=== PATIENT | male | born 1950 | race Caucasian/White ===

== ENCOUNTER → 2023-12-26 12:58 | Outpatient (REF) | payer MEDICARE, SELFPAY | LOC: MRI 3T 12:58 | PROVIDERS: ATTENDING PHYSICIAN Specialist; FAMILY PHYSICIAN Internal Medicine Cardiovascular Disease | DX: R97.20 Elevated prostate specific antigen [PSA] (principal) | CPT/HCPCS: 72197; A9575 ==

== ENCOUNTER 2024-07-16 08:04 | Outpatient (RCR) | payer MEDICARE, SELFPAY | END 2024-07-16 23:59 | disposition home or self-care (01) | LOC: RPT 08:04 | PROVIDERS: ATTENDING PHYSICIAN Specialist; FAMILY PHYSICIAN Family Medicine | DX: C61 Malignant neoplasm of prostate (principal); Z73.6 Limitation of activities due to disability; R32 Unspecified urinary incontinence | CPT/HCPCS: 97162; 97530 ==

== ENCOUNTER 2024-07-28 06:09 | Inpatient (IN) | payer MEDICARE, SELFPAY ==
[2024-07-16 11:43] LABS: INR 1.05; PT 14.2 Sec (11.4-14.6)
[2024-07-16 11:44] LABS: APTT 28.6 Sec (23.4-35.0)
[2024-07-16 11:47] LABS: Hematocrit 41.6 % (39.0-52.0); Hemoglobin 14.7 g/dL (13.0-18.0); Mean Corp Hgb Conc. 35.3 g/dL (33.0-37.0); Mean Corpuscular Volume 93.5 fL (80.0-94.0); Mean Platelet Volume 9.7 fL (7.4-10.4); Platelet Count 195 10^3/uL (130-400); Red Blood Cell Count 4.45 10^6/uL (4.70-6.10); White Blood Cell Count 6.6 10^3/uL (4.8-10.8)
[2024-07-16 12:16] LABS: Blood Urea Nitrogen 24 mg/dl (9-20); Calcium 8.8 mg/dl (8.4-10.2); Carbon Dioxide 25 mmol/L (22-30); Chloride 103 mmol/L (98-107); Glucose 89 mg/dl (70-99); Potassium 4.7 mmol/L (3.5-5.1); Sodium 139 mmol/L (135-145); eGFR 48.85
[2024-07-16 14:05] VITALS: BMI 28.4
--- NOTE | 2024-07-21 17:36 | PTCARENOTE ---
Abnormal eGFR 48.85 result reported to Kacey Pollock (urology office), no further requests at this time.
[2024-07-28] VITALS (17 sets, daily range): BP systolic 107–148; BP diastolic 48–87; BMI 28.4
[2024-07-28] MEDS: NEBCIN 480 MG/100 ML ENEMA 1 BOTTLE RECTAL (07:00)
[2024-07-28] MEDS: NORMOSOL-R/PLASMALYTE-A 1000 IV (07:17)
--- NOTE | 2024-07-28 09:28 | W.IMMPOSTOP ---
Surgical Immed Post Op Note
-
Primary Surgeon: Jerilyn
Assisting Surgeon: Frederic
Pre-op Diagnosis: Prostate cancer
Post-op Diagnosis: Same
Procedure Performed: Radical perineal prostatectomy, bladder neck reconstruction
Anesthesia Type: GET
Specimen / Cultures: Prostate with adnexa, bladder neck and urethral margins
Estimated Blood Loss: 150 ml
Complications: None
[2024-07-28] MEDS: DILAUDID 0.25 MG IV ×2 (10:04→11:51)
[2024-07-28 11:07] LABS: Hematocrit 38.4 % (39.0-52.0); Hemoglobin 13.7 g/dL (13.0-18.0)
[2024-07-28 12:03] LABS: Blood Urea Nitrogen 25 mg/dl (9-20); Calcium 8.6 mg/dl (8.4-10.2); Carbon Dioxide 19 mmol/L (22-30); Chloride 110 mmol/L (98-107); Estimated Creatinine Clearance 58 ml/min; Glucose 143 mg/dl (70-99); Potassium 4.9 mmol/L (3.5-5.1); Sodium 138 mmol/L (135-145); eGFR > 60.00
[2024-07-28] MEDS: LR 1000 IV ×3 (13:00→23:17)
[2024-07-28] MEDS: TORADOL 15 MG IV ×2 (15:01→19:24)
[2024-07-28] MEDS: COLACE 100 MG PO ×2 (15:02→17:15)
[2024-07-28] MEDS: TOPROL XL 50 MG PO (17:15)
[2024-07-28] MEDS: LIPITOR 40 MG PO (17:15)
[2024-07-28] MEDS: PROTONIX 40 MG PO (17:15)
[2024-07-28] MEDS: POLYSPORIN/DOUBLE ANTIBIOTIC 1 APPLIC TOPICAL (19:46)
[2024-07-29] MEDS: TORADOL 15 MG IV ×4 (01:01→20:37)
[2024-07-29 03:05] VITALS: BP 157/74
[2024-07-29] MEDS: LR IV (05:39)
[2024-07-29 07:08] LABS: Hematocrit 36.8 % (39.0-52.0); Hemoglobin 13.2 g/dL (13.0-18.0); Mean Corp Hgb Conc. 35.9 g/dL (33.0-37.0); Mean Corpuscular Hgb 32.9 pg (27.0-31.0); Mean Corpuscular Volume 91.8 fL (80.0-94.0); Mean Platelet Volume 9.1 fL (7.4-10.4); Platelet Count 177 10^3/uL (130-400); Red Blood Cell Count 4.01 10^6/uL (4.70-6.10); Red Cell Dist. Width 12.9 % (11.5-14.5)
[2024-07-29 07:25] VITALS: BP 173/86
[2024-07-29 07:37] LABS: Blood Urea Nitrogen 29 mg/dl (9-20); Calcium 8.6 mg/dl (8.4-10.2); Carbon Dioxide 24 mmol/L (22-30); Chloride 108 mmol/L (98-107); Estimated Creatinine Clearance 54 ml/min; Glucose 106 mg/dl (70-99); Potassium 3.9 mmol/L (3.5-5.1); Sodium 140 mmol/L (135-145); eGFR 58.01
[2024-07-29] MEDS: COLACE 100 MG PO ×2 (08:19→11:43)
[2024-07-29] MEDS: PERCOCET 5/325 1 TABLET PO (08:19)
[2024-07-29] MEDS: IMDUR (EXTENDED RELEASE) 30 MG PO (08:20)
[2024-07-29] MEDS: POLYSPORIN/DOUBLE ANTIBIOTIC 1 APPLIC TOPICAL ×2 (08:20→20:38)
[2024-07-29] MEDS: ZESTRIL 10 MG PO (08:20)
--- NOTE | 2024-07-29 09:28 | W.PN.SURGUPD ---
Surgical Update
Surgical Update
Stable 1 day s/p radical perineal prostatectomy
Afeb/VSS
Labs good
Urine clear
Dressing moderately stained
---
Advance activity
Resume aspiring 07/30/24
[2024-07-29] MEDS: LEVAQUIN 100 IV (10:30)
--- NOTE | 2024-07-29 10:42 | CM ---
Patient seen at bedside
IA completed
CM consult completed - VN
options reviewed-prefers [facility]
referral entered in [facility]-notified [facility] liaison
Lives in a 2 story home with , 2 steps to enter, flight to bed/bath
PLOF: independent, no assistive device
DME: Walker, shower chair
no VN in past/has had outpatient rehab
PCP: Chevy Day
Pharm[facility]: [facility] [address] [place]
PLAN: home with [facility]
to transport
[2024-07-29 10:55] VITALS: BP 153/84
--- NOTE | 2024-07-29 10:55 | VNURNOTE ---
Home health liaison met with patient to discuss [facility] services, visit scheduling/frequency, homebound status and pet policy. Patient understands home visits will be 1-2 times a week to assess and teach medical management. Patient aware a visiting
nurse will contact him for start of care within 1-2 days after discharge from . Patient also made aware to take home lamb supplies (leg bag/overnight bag) and make sure he knows how to empty the lamb bag prior to discharge. Patient states
understanding. [facility] Referral completed in care port
[2024-07-29 14:55] VITALS: BP 164/94
[2024-07-29] MEDS: COLACE PO (17:15)
[2024-07-29] MEDS: TOPROL XL 50 MG PO (17:17)
[2024-07-29] MEDS: LIPITOR 40 MG PO (17:17)
[2024-07-29] MEDS: PROTONIX PO (17:17)
[2024-07-29 23:20] VITALS: BP 168/92
[2024-07-30] MEDS: TYLENOL 650 MG PO (04:39)
--- NOTE | 2024-07-30 04:45 | PTCARENOTE ---
Resumed care of pt laying in bed AAOx3. Pt reports some perineal discomfort, 4/10 pain, see MAR. Pt with small intermittent loose stools, sitz bath in place as needed. Gregory teaching provided. Pt denies any other complaints at this time. Call holland
in place. Will continue to monitor.
[2024-07-30 07:30] VITALS: BP 173/102
[2024-07-30] MEDS: ZESTRIL 10 MG PO (08:21)
[2024-07-30] MEDS: LOW STRENGTH ASPIRIN 81 MG PO (08:22)
[2024-07-30] MEDS: IMDUR (EXTENDED RELEASE) 30 MG PO (08:22)
[2024-07-30] MEDS: POLYSPORIN/DOUBLE ANTIBIOTIC 1 APPLIC TOPICAL (08:27)
[2024-07-30] MEDS: COLACE PO ×2 (08:28→11:35)
--- NOTE | 2024-07-30 10:23 | CM ---
Chart reviewed; met with pt
Poss d/c today
[facility] to follow
Has ride - to transport
Given IMM
Plan - home with [facility]
--- NOTE | 2024-07-30 11:04 | W.DS.TRANS ---
DC Summary - Business Services Representative
-
Discharge Instructions:
Sleep Apnea Risk Intermediate
Instructions:
Stand-Alone Forms:
Changes to Home Medications: No
Discharge Medications:
DC Medications w/original date entered in [facility]
lansoprazole 30 mg capsule,delayed release (Prevacid) 30 mg PO QPM GERD 09/26/13
lisinopril 10 mg tablet 10 mg PO DAILY Blood Pressure 09/26/13
aspirin 81 mg chewable tablet 81 mg PO DAILY Blood Clot Prevention/Tx 05/09/15
atorvastatin 20 mg tablet 40 mg PO QPM High Cholesterol 05/09/15
isosorbide mononitrate 30 mg tablet,extended release 24 hr 30 mg PO DAILY Heart Disease/Condition 05/09/15
metoprolol succinate 50 mg tablet,extended release 24 hr 50 mg PO QPM Blood Pressure 05/09/15
nitroglycerin 0.4 mg sublingual tablet 0.4 mg sublingual [id number] PRN chest pain #30 tabs 05/09/15
Beet Root Extract 1 dose PO DAILY Supplement 07/21/24
Home Medication Changes
Pending Results: No
[2024-07-30 11:32] VITALS: BP 164/70
[2024-07-30 19:09] LABS: Hepatitis C Antibody Negative (Negative)
== END 2024-07-30 13:04 | disposition home health service (06) | DRG 708 ==
LOC: 2 SOUTH 06:09
PROVIDERS: ADMITTING PHYSICIAN Specialist; FAMILY PHYSICIAN Family Medicine
PROC: 0VT00ZZ Resection of Prostate, Open Approach (ICD-10-PCS; 2024-07-28)
PROC: 0TQC0ZZ Repair Bladder Neck, Open Approach (ICD-10-PCS; 2024-07-28)
PROC: 0TBC0ZX Excision of Bladder Neck, Open Approach, Diagnostic (ICD-10-PCS; 2024-07-28)
PROC: 0TBD0ZX Excision of Urethra, Open Approach, Diagnostic (ICD-10-PCS; 2024-07-28)
PROC: 0VBQ0ZZ Excision of Bilateral Vas Deferens, Open Approach (ICD-10-PCS; 2024-07-28)
PROC: 0VB30ZZ Excision of Bilateral Seminal Vesicles, Open Approach (ICD-10-PCS; 2024-07-28)
DX: C61 Malignant neoplasm of prostate (principal); R19.7 Diarrhea, unspecified; I25.10 Atherosclerotic heart disease of native coronary artery without angina pectoris; I10 Essential (primary) hypertension; E78.00 Pure hypercholesterolemia, unspecified; K21.9 Gastro-esophageal reflux disease without esophagitis; Z87.19 Personal history of other diseases of the digestive system; Z79.82 Long term (current) use of aspirin; Z91.018 Allergy to other foods
CPT/HCPCS: 88305; 88309; 88332; 36415; 80048; 85014; 85018; 85027; 85610; 85730; 86803; 86850; 86900; 86901; 88331; A4648

== ENCOUNTER 2024-09-02 12:54 | Outpatient (RCR) | payer MEDICARE, SELFPAY | END 2024-09-02 23:59 | disposition home or self-care (01) | LOC: RPT 12:54 | PROVIDERS: ATTENDING PHYSICIAN Specialist; FAMILY PHYSICIAN Family Medicine | DX: C61 Malignant neoplasm of prostate (principal); Z73.6 Limitation of activities due to disability; R32 Unspecified urinary incontinence | CPT/HCPCS: 97110; 97164; 97530 ==

== ENCOUNTER 2024-10-01 10:46 | Outpatient (RCR) | payer MEDICARE, SELFPAY | END 2024-10-01 23:59 | disposition home or self-care (01) | LOC: RPT 10:46 | PROVIDERS: ATTENDING PHYSICIAN Specialist; FAMILY PHYSICIAN Family Medicine | DX: C61 Malignant neoplasm of prostate (principal); Z73.6 Limitation of activities due to disability; R32 Unspecified urinary incontinence; Z90.79 Acquired absence of other genital organ(s); Z98.890 Other specified postprocedural states | CPT/HCPCS: 97110; 97112; 97140; 97530 ==

== ENCOUNTER 2024-10-08 10:54 | Outpatient (RCR) | payer MEDICARE, SELFPAY | END 2024-10-08 12:46 | disposition home or self-care (01) | LOC: RPT 10:54 | PROVIDERS: ATTENDING PHYSICIAN Specialist; FAMILY PHYSICIAN Family Medicine | DX: C61 Malignant neoplasm of prostate (principal); Z73.6 Limitation of activities due to disability; R32 Unspecified urinary incontinence; Z90.79 Acquired absence of other genital organ(s); Z98.890 Other specified postprocedural states | CPT/HCPCS: 97110; 97140; 97530 ==